=== PATIENT | female | born 1955 | race Two or more races ===

== ENCOUNTER 2021-10-12 02:30 | Emergency (ER) | payer MEDICARE, OTHER ==
[~2021-10-12] VITALS: Ht 162.6 cm; Wt 45.4 kg
[2021-10-12 02:37] VITALS: BP 160/81
--- NOTE | 2021-10-12 02:37 | NUR ---
PT BIBRA 62 C/O LOWER ABD PAIN & URINARY RETENTION X 48 HOURS. PT ONLY "DRIBBLES". PT ATAKING NEW PRESCRIBED MEDICATION HYDROXINE WHICH MAY BE CAUSING THE URINARY RETENTION . PT A/OX4. TOLERATING R/A WELL WITH NO SOB.
--- NOTE | 2021-10-12 02:46 | NUR ---
BLADDER SCAN SHOWED GREATER THAN 250ML URINE RETENTION. MD NOTIFIED.
--- NOTE | 2021-10-12 02:54 | NUR ---
16FR INDWELLING ZAPATA CATHETER INSERTED AND SECURED. PT TOLERATED WELL.
--- NOTE | 2021-10-12 03:23 | NUR ---
PT DID NOT WISH TO BE DISCHARGED HOME WITH ZAPATA CATHETER AND REFUSED LEG BAG.EXPLAINED THE RISKS OF HAVING ZAPATA REMOVED AND PT VERBALIZED UNDERSTANDING. ZAPATA CATHETER REMOVED PER PATIENT REQUEST. TOTAL 700ML DRAINED. AWARE.
--- NOTE | 2021-10-12 03:25 | NUR ---
Patient discharged to home in stable condition. Written and verbal after care instructions given. Patient verbalizes understanding of instruction.
== END 2021-10-12 03:39 | disposition home or self-care (01) ==
LOC: ER 02:32
DX: R33.9 Retention of urine, unspecified (principal); J45.909 Unspecified asthma, uncomplicated; F41.9 Anxiety disorder, unspecified

== ENCOUNTER 2023-04-13 10:01 | Inpatient (IN) | payer MEDICARE, OTHER ==
[~2023-04-13] VITALS: Ht 160 cm; Wt 43.1 kg
[2023-04-13] MEDS ORDERED: LORAZEPAM INJ 2 MG/ML VIAL ONE (10:37)
[2023-04-13 10:55] LABS: EOSINOPHILS % (AUTO) 0.2 % (0.0-6.0); HEMATOCRIT 44 % (33-45); MEAN CORPUSCULAR HEMOGLOBIN 31 PG (26.0-33.0); MEAN CORPUSCULAR HGB CONC 34 g/dl (31.0-36.0); MEAN CORPUSCULAR VOLUME 89 fL (82-100); MONOCYTES # (AUTO) 0.3 K/uL (0.1-1.30); MONOCYTES % (AUTO) 5.7 % (2.0-12.0); NEUTROPHILS # (AUTO) 3.4 K/uL (1.8-8.9); NEUTROPHILS % (AUTO) 72.1 % (43.0-81.0); PLATELET COUNT (AUTO) 426 K/uL (150-450); RED BLOOD CELL COUNT(AUTO) 4.91 MIL/uL (4.0-5.2); RED CELL DISTRIBUTION WIDTH 12.5 % (11.5-15.0); WHITE BLOOD COUNT (AUTO) 4.7 K/uL (4.3-11.0)
[2023-04-13 10:58] LABS: CALCIUM, SERUM 9.5 mg/dL (8.5-10.1); CARBON DIOXIDE 24 mmol/L (21-32); CHLORIDE 92 mmol/L (98-107); CREATININE 0.6 mg/dL (0.6-1.3); GLUCOSE 110 mg/dL (74-106); POTASSIUM 4.1 mmol/L (3.5-5.1); SODIUM SERUM 128 mmol/L (136-145); UREA NITROGEN, BLOOD 9 mg/dL (7-18)
[2023-04-13] MEDS ORDERED: LORAZEPAM INJ 2 MG/ML VIAL IVP ONE (11:00)
[2023-04-13] MEDS ORDERED: IV NS 0.9% 1,000 ML BAG IV ONE (11:00)
[2023-04-13 11:08] LABS: ACETAMINOPHEN <10 ug/ml (10-30); ALANINE AMINOTRANSFERASE 116 U/L (12-78); ALBUMIN 4.5 g/dL (3.4-5.0); ALCOHOL, BLOOD < 3 mg/dL (0-10); ALKALINE PHOSPHATASE 100 U/L (46-116); ASPARTATE AMINOTRANSFERASE 50 U/L (15-37); BILIRUBIN,DIRECT 0.2 mg/dL (0.0-0.2); BILIRUBIN,TOTAL 0.6 mg/dL (0.2-1.0); SALICYLATE 1.4 mg/dL (2.8-20.0); TOTAL PROTEIN, SERUM 7.8 g/dL (6.4-8.2)
[2023-04-13 12:03] LABS: APPEARANCE,URINE CLEAR (CLEAR); BILIRUBIN,URINE NEGATIVE (NEGATIVE); BLOOD, URINE NEGATIVE Ery/uL (NEGATIVE); COLOR,URINE YELLOW (YELLOW); KETONES,URINE 1+ mg/dL (NEGATIVE); LEUKOCYTE ESTERASE ,URINE NEGATIVE (NEGATIVE); NITRITE, URINE NEGATIVE (NEGATIVE); PH,URINE 8.5 (5.0-8.0); PROTEIN,URINE NEGATIVE (NEGATIVE); UGLUCOSE NEGATIVE (NEGATIVE); UROBILINOGEN,URINE 0.2 EU/dL (0.2)
[2023-04-13 12:20] LABS: AMPHETAMINE, URINE NEGATIVE (NEGATIVE); BARBITURATE, URINE NEGATIVE (NEGATIVE); BENZODIAZEPINE, URINE NEGATIVE (NEGATIVE); CANNABINOID, URINE NEGATIVE (NEGATIVE); COCCAINE, URINE NEGATIVE (NEGATIVE); OPIATE, URINE NEGATIVE (NEGATIVE); PHENCYCLIDINE SCREEN,URINE NEGATIVE (NEGATIVE)
[2023-04-13] MEDS ORDERED: ALBU8.5H8 IH (14:09)
[2023-04-13] MEDS ORDERED: METH20TA50 PO (14:09)
[2023-04-13] MEDS ORDERED: VITA1TAB56 PO (14:09)
[2023-04-13] MEDS ORDERED: CLON0.1T PO (14:09)
[2023-04-13] MEDS ORDERED: LISI10TA29 PO (14:09)
[2023-04-13] MEDS ORDERED: CHOL100043 PO (14:09)
[2023-04-13] MEDS ORDERED: MULT-447 PO (14:09)
[2023-04-13] MEDS ORDERED: ESTR42.511 VG (14:09)
[2023-04-13] MEDS ORDERED: OMEG-167 PO (14:09)
[2023-04-13] MEDS ORDERED: HYDR-500 PO (14:09)
[2023-04-13] MEDS ORDERED: ASCO-352 PO (14:09)
[2023-04-13] MEDS ORDERED: CLONIDINE HCL 0.1 MG TABLET PO PRN (15:00)
[2023-04-13 16:00] VITALS: BP 132/89; TEMP 98.2; O2SAT 100
[2023-04-13] MEDS ORDERED: Medication Not On Formulary EA (Methylphenidate Hcl 20 MG) PO SCH (17:00)
[2023-04-13] MEDS ORDERED: MAG HYDROX/AL HYDROX/SIMETH 30 ML UDC PO PRN (17:30)
[2023-04-13] MEDS ORDERED: ACETAMINOPHEN 325 MG TABLET PO PRN (17:30)
[2023-04-13] MEDS ORDERED: MAGNESIUM HYDROXIDE 30 ML UDC PO PRN (17:30)
[2023-04-13] MEDS ORDERED: BLOOD SUGAR DIAGNOSTIC 1 EACH STRIP IN ONE (17:30)
[2023-04-13] MEDS: LORAZEPAM 0.5 MG TABLET PO PRN (17:36)
[2023-04-13] MEDS ORDERED: ALBUTEROL FS 2.5 MG/3 ML VIAL.NEB IH PRN (21:00)
[2023-04-14] MEDS: ZOLPIDEM TARTRATE 5 MG TABLET PO PRN ×2 (02:35→22:23)
[2023-04-14] MEDS: LORAZEPAM 0.5 MG TABLET PO PRN ×2 (05:30→13:22)
[2023-04-14 08:00] VITALS: BP 132/77; TEMP 98.6; O2SAT 99
[2023-04-14 08:04] LABS: CHOLESTEROL 277 mg/dL (<200); HDL CHOLESTEROL 121 mg/dL (40-60); LDL 140 mg/dL (0-99); TRIGLYCERIDES 49 mg/dL (30-150)
[2023-04-14 08:17] LABS: ALBUMIN 3.5 g/dL (3.4-5.0); BILIRUBIN,TOTAL 0.3 mg/dL (0.2-1.0); CALCIUM, SERUM 9.2 mg/dL (8.5-10.1); CREATININE 0.5 mg/dL (0.6-1.3); POTASSIUM 3.8 mmol/L (3.5-5.1); TOTAL PROTEIN, SERUM 6.4 g/dL (6.4-8.2)
[2023-04-14] MEDS: ASCORBIC ACID 500 MG TABLET PO SCH (08:48)
[2023-04-14] MEDS: LISINOPRIL (10MG) 10 MG TABLET PO SCH (08:48)
[2023-04-14] MEDS: CHOLECALCIFEROL 1,000 UNIT TABLET (VIT D3) PO SCH (08:49)
[2023-04-14] MEDS: VITAMIN B COMP W-C 1 TAB TABLET PO SCH (08:49)
[2023-04-14] MEDS: MULTIVIT W/MINERALS 1 TAB TABLET PO SCH (08:51)
[2023-04-14] MEDS ORDERED: Medication Not On Formulary EA (Omega-3 Fatty Acids/Fish Oil (Fish Oil 1,000 Mg Softgel) PO SCH (09:00)
[2023-04-14] MEDS: Fluoxetine 10 mg capsule PO SCH (10:36)
[2023-04-14] MEDS: ENSURE ENLIVE CHOC 237 ML CAN PO SCH ×2 (12:02→17:09)
[2023-04-14 13:37] VITALS: O2SAT 97
[2023-04-14] MEDS: ALBUTEROL FS 2.5 MG/3 ML VIAL.NEB IH PRN (13:37)
[2023-04-14 13:47] VITALS: O2SAT 100
[2023-04-14 16:00] VITALS: BP 121/71; TEMP 98.9; O2SAT 97
[2023-04-14] MEDS: GABAPENTIN 100 MG CAPSULE PO SCH ×2 (17:00→17:08)
[2023-04-14 20:16] VITALS: BP 109/62; TEMP 98.4; O2SAT 98
[2023-04-15] MEDS: hydrOXYzine PAMOATE 25 MG CAPSULE PO PRN ×2 (00:03→14:06)
[2023-04-15] MEDS: LORAZEPAM 0.5 MG TABLET PO PRN ×2 (06:56→19:17)
[2023-04-15 08:00] VITALS: BP 128/80; TEMP 98; O2SAT 99
[2023-04-15] MEDS: ENSURE ENLIVE CHOC 237 ML CAN PO SCH ×3 (08:50→17:42)
[2023-04-15] MEDS: ASCORBIC ACID 500 MG TABLET PO SCH (08:53)
[2023-04-15] MEDS: VITAMIN B COMP W-C 1 TAB TABLET PO SCH (08:53)
[2023-04-15] MEDS: Fluoxetine 10 mg capsule PO SCH (08:54)
[2023-04-15] MEDS: CHOLECALCIFEROL 1,000 UNIT TABLET (VIT D3) PO SCH (08:54)
[2023-04-15] MEDS: LISINOPRIL (10MG) 10 MG TABLET PO SCH (08:54)
[2023-04-15] MEDS: MULTIVIT W/MINERALS 1 TAB TABLET PO SCH (08:54)
[2023-04-15] MEDS: GABAPENTIN 100 MG CAPSULE PO SCH ×3 (08:54→17:00)
[2023-04-15] MEDS: CLONIDINE HCL 0.1 MG TABLET PO SCH ×2 (08:54→09:00)
[2023-04-15 12:59] VITALS: O2SAT 96
[2023-04-15] MEDS: ALBUTEROL FS 2.5 MG/3 ML VIAL.NEB IH PRN (12:59)
[2023-04-15 13:11] VITALS: O2SAT 100
[2023-04-15 16:00] VITALS: BP 111/78; TEMP 98.8; O2SAT 100
[2023-04-15 20:05] VITALS: BP_SYST 118; BP_SYST 143; BP_DIAS 71; BP_DIAS 91; TEMP 98.2; TEMP 98.4; O2SAT 98
[2023-04-16] MEDS: hydrOXYzine PAMOATE 25 MG CAPSULE PO PRN ×3 (01:21→18:52)
[2023-04-16] MEDS: ZOLPIDEM TARTRATE 5 MG TABLET PO PRN ×2 (02:20→20:58)
[2023-04-16] MEDS: LORAZEPAM 0.5 MG TABLET PO PRN ×2 (07:04→19:30)
[2023-04-16 08:00] VITALS: BP 131/81; TEMP 98.2; O2SAT 97
[2023-04-16] MEDS: ENSURE ENLIVE CHOC 237 ML CAN PO SCH ×3 (08:28→17:13)
[2023-04-16] MEDS: CHOLECALCIFEROL 1,000 UNIT TABLET (VIT D3) PO SCH (08:31)
[2023-04-16] MEDS: Fluoxetine 10 mg capsule PO SCH (08:31)
[2023-04-16] MEDS: GABAPENTIN 100 MG CAPSULE PO SCH ×2 (08:31→17:00)
[2023-04-16] MEDS: MULTIVIT W/MINERALS 1 TAB TABLET PO SCH (08:31)
[2023-04-16] MEDS: VITAMIN B COMP W-C 1 TAB TABLET PO SCH (08:31)
[2023-04-16] MEDS: ASCORBIC ACID 500 MG TABLET PO SCH (08:31)
[2023-04-16] MEDS: LISINOPRIL (10MG) 10 MG TABLET PO SCH (08:31)
[2023-04-16] MEDS: CLONIDINE HCL 0.1 MG TABLET PO SCH (08:32)
[2023-04-16 16:00] VITALS: BP 113/72; TEMP 98.4; O2SAT 96
[2023-04-16 20:12] VITALS: BP 121/88; TEMP 98.6; O2SAT 98
[2023-04-17] MEDS: hydrOXYzine PAMOATE 25 MG CAPSULE PO PRN ×3 (03:30→22:25)
[2023-04-17] MEDS: LORAZEPAM 0.5 MG TABLET PO PRN (07:39)
[2023-04-17 08:00] VITALS: BP 133/93; TEMP 98.1; O2SAT 100
[2023-04-17] MEDS: ENSURE ENLIVE CHOC 237 ML CAN PO SCH ×3 (08:11→16:29)
[2023-04-17] MEDS: MULTIVIT W/MINERALS 1 TAB TABLET PO SCH (08:12)
[2023-04-17] MEDS: Fluoxetine 10 mg capsule PO SCH (08:12)
[2023-04-17] MEDS: VITAMIN B COMP W-C 1 TAB TABLET PO SCH (08:12)
[2023-04-17] MEDS: CHOLECALCIFEROL 1,000 UNIT TABLET (VIT D3) PO SCH (08:13)
[2023-04-17] MEDS: LISINOPRIL (10MG) 10 MG TABLET PO SCH (08:13)
[2023-04-17] MEDS: ASCORBIC ACID 500 MG TABLET PO SCH (08:13)
[2023-04-17] MEDS: GABAPENTIN 100 MG CAPSULE PO SCH ×3 (08:15→16:30)
[2023-04-17] MEDS: CLONIDINE HCL 0.1 MG TABLET PO SCH (08:15)
[2023-04-17] MEDS: CLONIDINE HCL 0.1 MG TABLET PO PRN (13:31)
[2023-04-17 16:00] VITALS: BP 97/58; TEMP 98.7; O2SAT 97
[2023-04-17] MEDS: ZOLPIDEM TARTRATE 5 MG TABLET PO PRN (20:11)
[2023-04-17] MEDS ORDERED: ATORVASTATIN 10 MG TABLET PO SCH (22:00)
[2023-04-17 22:02] VITALS: BP 96/63; TEMP 98.1; O2SAT 98
[2023-04-18] MEDS: hydrOXYzine PAMOATE 25 MG CAPSULE PO PRN (05:26)
[2023-04-18] MEDS: CLONIDINE HCL 0.1 MG TABLET PO PRN (07:37)
[2023-04-18 07:42] VITALS: BP 172/113; TEMP 98.1; O2SAT 98
[2023-04-18 08:00] VITALS: BP 157/99; TEMP 97.9; O2SAT 99
[2023-04-18] MEDS: ENSURE ENLIVE CHOC 237 ML CAN PO SCH ×2 (08:02→12:00)
[2023-04-18] MEDS: CHOLECALCIFEROL 1,000 UNIT TABLET (VIT D3) PO SCH (08:32)
[2023-04-18] MEDS: Fluoxetine 10 mg capsule PO SCH (08:32)
[2023-04-18] MEDS: VITAMIN B COMP W-C 1 TAB TABLET PO SCH (08:32)
[2023-04-18] MEDS: GABAPENTIN 100 MG CAPSULE PO SCH (08:32)
[2023-04-18] MEDS: ASCORBIC ACID 500 MG TABLET PO SCH (08:32)
[2023-04-18] MEDS: MULTIVIT W/MINERALS 1 TAB TABLET PO SCH (08:32)
[2023-04-18 08:33] VITALS: BP 152/99
[2023-04-18] MEDS: LISINOPRIL (10MG) 10 MG TABLET PO SCH (08:33)
== END 2023-04-18 10:15 | disposition left against medical advice (07) | DRG 880 ==
LOC: ER 10:01 → GPS 14:48
PROVIDERS: ADMIT Psychiatry & Neurology Psychiatry; ATTEND Internal Medicine
DX: F41.1 Generalized anxiety disorder (principal); E22.2 Syndrome of inappropriate secretion of antidiuretic hormone; E44.1 Mild protein-calorie malnutrition; Z68.1 Body mass index [BMI] 19.9 or less, adult; I10 Essential (primary) hypertension; J45.909 Unspecified asthma, uncomplicated; F13.10 Sedative, hypnotic or anxiolytic abuse, uncomplicated; F41.0 Panic disorder [episodic paroxysmal anxiety]; R74.01 Elevation of levels of liver transaminase levels; R73.9 Hyperglycemia, unspecified; F39 Unspecified mood [affective] disorder
CPT/HCPCS: 36415; 80048-TC; 80053-TC; 80061-TC; 80076-TC; 82962-TC; 85025-TC; 94799-TC; G0480; J2060; J7030; Q0177